=== PATIENT | female | born 1960 | race Caucasian/White ===

== ENCOUNTER 2017-10-02 10:54 | Emergency (ER) | payer BC ==
--- NOTE | 2017-10-02 14:00 | UC ---
Abdominal Pain Female HPI - HPI Summary HPI Summary: 57 y/o female presents to the urgent care c/o of RUQ abdominal pain since this morning at 0530am. Pain is 8/10 intermittent localized, and sharp at times. PT has Hx of kidney stones, but Pt states her symptoms usually start in the back and she denies urinary symptoms. Pt has not taking anything to alleviate pain Hx of appendectomy at age 13. - History of Current Complaint Chief Complaint: UCAbdominalPain Stated Complaint: PAIN UNDER RIB Time Seen by Provider: 10/02/17 13:39 Hx Obtained From: Patient ?: No - Menopausal. Hx of hysterectomy Onset/Duration: Sudden Onset, Lasting Hours - 8hrs, Still Present Timing: Intermittent Episodes Lasting: - seconds Severity Initially: Mild Severity Currently: Moderate Pain Intensity: 8 Pain Scale Used: 0-10 Numeric Location: Discrete At: RUQ Radiates: No Character: Sharp Aggravating Factor(s): Movement Alleviating Factor(s): Position Associated Signs and Symptoms: Positive: Negative. Negative: Diaphoresis, Fever , Cough, Chest Pain, Back Pain, Constipation, Blood in Stool, Urinary Symptoms, Decreased Appetite, Vaginal Bleeding, Vaginal Discharge, Nausea, Vomiting, Diarrhea - Risk Factors Ectopic Risk Factor: Negative, Maternal Age ^ 30 Ovarian Torsion Risk Factor: Hysterectomy Allergies/Adverse Reactions: Allergies Allergy/AdvReac Type Severity Reaction Status Date / Time No Known Allergies Allergy Verified 10/02/17 11:08 PMH/Surg Hx/FS Hx/Imm Hx Previously Healthy: Yes - Pt denies PMHX - Surgical History Surgical History: Yes Surgery Procedure, Year, and Place: hysterectomy- app - Family History Known Family History: Positive: None - Pt dneies FMHX - Social History Occupation: Employed Full-time Lives: With Family Alcohol Use: None Substance Use Type: None Smoking Status (MU): Never Smoked Tobacco Review of Systems Constitutional: Negative Skin: Negative Eyes: Negative ENT: Negative Respiratory: Negative Cardiovascular: Negative Gastrointestinal: Abdominal Pain - RUQ abdominal pain Genitourinary: Negative Motor: Negative Neurovascular: Negative Musculoskeletal: Negative Neurological: Negative Psychological: Negative Is Patient Immunocompromised?: No All Other Systems Reviewed And Are Negative: Yes Physical Exam Vital Signs: Initial Vital Signs Temp 98 F 10/02/17 11:05 Pulse 94 10/02/17 11:05 Resp 16 10/02/17 11:05 BP 148/90 10/02/17 11:05 Pulse Ox 100 10/02/17 11:05 Abd Pain Female Course/Dx - Differential Dx/Diagnosis Differential Diagnosis: Bowel Obstruction, Constipation, Gall Bladder Disease, Renal Colic, Urinary Tract Infection Provider Diagnoses: 1- RT kidney stones. 2-Hepatic cyst. 3-Constipation. 4- Elevated BP w/o Hx of HTN Discharge - Discharge Plan Condition: Stable Disposition: HOME Prescriptions: Ibuprofen TAB* [Motrin TAB* 800 MG] 800 mg PO Q6H PRN #30 tab PRN Reason: Pain Polyethylene Glycol 3350* [Miralax*] 17 gm PO DAILY #1 bottle Patient Education Materials: Constipation (ED), Kidney Stones (ED), Low-Sodium Diet (ED) Referrals: Vahid Meléndez MD [Primary Care Provider] - 2 Days Rigoberto Ward MD [Medical Doctor] - 2 Days Additional Instructions: 1-Please take ibuprofen PO q6-8hrs prn as instructed after meals to alleviate pain. Increase fluid intake, 2- Please F/u w/ Urologist DR Rico in 2-3 days for further managemet 3-Take Miralax as directed PO to improve BM. Star dietary management of constipation: increase fruits, vegetables, fluid and fiber. 1-2 tablespoons qd- tid of equal parts applesauce, prune juice and oat bran. 4-If symptoms worsen please please go immediately to the ER for further management. 5-Your BP is elevated today. please decrease salt in your diet, monitor BP and if it continues to be elevated please f/u with your PCP for further management 6-Please f/u w/ your PCP for further management on the hepatic cyst. - Billing Disposition and Condition Condition: STABLE Disposition: Home
[2017-10-02 14:02] VITALS: BP 154/95
--- NOTE | 2017-10-02 14:33 | RAD ---
Indication: RIGHT upper quadrant pain. Positive Banerjee's sign. Comparison: September 30, [address] Technique: RIGHT upper quadrant ultrasound. Report: Appropriate direction flow documented in the portal and hepatic veins. 12.8 cm liver is increased in echogenicity. 1.4 cm sharply circumscribed simple cyst at the RIGHT hepatic lobe. Negative for intrahepatic biliary dilatation. 1.7 mm common bile duct. Adequately distended gallbladder with normal 1.8 mm wall is without pathologic finding. Negative for sonographic Banerjee's sign. Unremarkable well visualized pancreas. Negative for ascites. 8.5 cm RIGHT kidney is unremarkable. IMPRESSION: 1. Hepatosteatosis. 2. No evidence for gallbladder pathology.
[2017-10-02] MEDS ORDERED: Acetaminophen TAB* 325 MG PO ONE (14:45)
--- NOTE | 2017-10-02 15:25 | RAD ---
INDICATION: Right upper quadrant pain COMPARISON: Right upper quadrant sonogram October 02, 2017; CT abdomen pelvis September 30, 2008 TECHNIQUE: Noncontrast axial source images were obtained from the hemidiaphragms to the symphysis pubis. This examination was ordered using a renal stone protocol which is performed without oral or intravenous contrast and therefore has inherent limitations when used to evaluate other intra-abdominal or intrapelvic pathology. Consider conventional contrast enhanced imaging if clinically indicated. Lung bases: The lung bases are clear. Liver: The liver is normal in size. There is no ductal dilatation. There is a cyst in anterior right hepatic lobe as also described on the recent ultrasound. There is suspected mild hepatic steatosis Gallbladder: There are no calcified gallstones. There is no evidence of wall thickening or pericholecystic fluid.. Spleen: The spleen is normal in size. The noncontrast CT appearance is normal. Pancreas: Noncontrast imaging shows no pancreatic mass or ductal dilitation. Adrenal glands: No masses are identified. Kidneys/Bladder: There are multiple, tiny Abby 1 to 2 mm) calculi in the mid and inferior pole the right kidney. One of these calculi was present previously. Noncontrast imaging shows no evidence of a renal mass. The bladder is unremarkable.. Adenopathy: There is no evidence of intraperitoneal or retroperitoneal adenopathy. Evaluation is limited without oral contrast. Fluid collections: There are no free or localized fluid collections. Vessels: The aorta and iliac vessels are normal in caliber. There are no significant atherosclerotic changes. The IVC appears normal Pelvic organs: The uterus and adnexa appear normal GI tract: Evaluation of the bowel is limited without oral contrast. The stomach, small bowel, and lower GI tract appear grossly normal. There is large amount retained stool, however. There are no obstructive findings. The appendix is visualized and appears normal. Soft tissues: No soft tissue abnormalities of the extraperitoneal abdomen or pelvis are identified. Osseous structures: There are no acute osseous findings. IMPRESSION: 1. Nonobstructive right renal calculi. 2. Incidental right hepatic lobe cyst. 3. Moderate retained stool.
[2017-10-02] MEDS ORDERED: Ketorolac INJ* 30 MG/ML 1 ML VIAL IM ONE (15:40)
== END 2017-10-02 15:55 | disposition home or self-care (01) ==
LOC: UCEAST 10:54
DX: N20.0 Calculus of kidney (principal); Z87.442 Personal history of urinary calculi; K76.89 Other specified diseases of liver; K59.00 Constipation, unspecified; R03.0 Elevated blood-pressure reading, without diagnosis of hypertension
CPT/HCPCS: 74176; 76705; 81003; 96372; 99212; A9270-GY; G0463; J1885

== ENCOUNTER 2019-01-14 18:21 | Emergency (ER) | payer BC ==
--- NOTE | 2019-01-14 18:43 | UC ---
Laceration HPI - HPI Summary HPI Summary: Patient presents to urgent care for evaluation treatment of the laceration to her right thumb. Patient's right-hand dominant. Patient was peeling potatoes when she sliced her thumb. Patient washed her wound but continued to bleed. Patient is an ulcer nail. Patient came here for further evaluation and treatment. Patient is not immunocompromised. Patient is not aware her last tetanus shot was. Patient's medications reviewed this visit. - History Of Current Complaint Stated Complaint: FINGER LACERATION Time Seen by Provider: 01/14/19 18:34 Hx Obtained From: Patient Laceration Location: Finger - Allergies/Home Medications Allergies/Adverse Reactions: Allergies Allergy/AdvReac Type Severity Reaction Status Date / Time No Known Allergies Allergy Verified 01/14/19 18:45 Home Medications: Home Medications NK [No Home Medications Reported] 01/14/19 [History Confirmed 01/14/19] PMH/Surg Hx/FS Hx/Imm Hx Previously Healthy: Yes - Surgical History Surgical History: Yes Surgery Procedure, Year, and Place: hysterectomy-1997,ta appy - Family History Known Family History: Positive: None - Pt dneies FMHX, Non-Contributory - Social History Occupation: Employed Full-time Lives: With Family Alcohol Use: None Substance Use Type: None Smoking Status (MU): Never Smoked Tobacco Review of Systems All Other Systems Reviewed And Are Negative: Yes Constitutional: Positive: Negative Skin: Positive: Other - Laceration right thumb. Physical Exam - Summary Physical Exam Summary: Vital Signs Reviewed: Yes A+Ox3, no distress Eyes: Conjunctiva Clear ENT: Hearing grossly normal neck: supple Respiratory: Positive: No respiratory distress, No accessory muscle use Cardiovascular: skin color reflect adequate perfusion CBT < 2 sec distal pad + flex/ext DIP, PIP against resistance Musculoskeletal Exam: + flex/ext DIP, PIP against resistance Neurological: Positive: Alert, ambulatory without difficulty + gross sensation with q tip about tip Psychological: Positive: Normal Response To examiner Skin: Positive: no rash, no ecchymosis Triage Information Reviewed: Yes Procedures - Procedure Summary Procedure Summary: Digital block: Time out performed with RN at bedside Under sterile conditions, cleaned webbing and ring around right thumb with alcohol using 25 gauge 1.5inch needle - infiltrated ring at base of thumb and web spacing with 4ml of 2% lidocaine without epi Pt tolerated well Will check for anesthesia and reassess Laceration Repair - Laceration Repair 1 Procedure Summary: verbal permission to treat time out completed with RN at bedside pt prepped in usual, sterile fashion copious irrigation with 250ml sterile saline under pressure Pt skin flap dusky - d/w pt and spouse at length - concern for poor blood flow - will suture in place - aware may not survive and will heal by secondary intention pt tolerated well pt became nauseous and lightheaded during end of procedure - RN Called to room , placed supine, elevated legs, cool cloth - pt with rapid recovery Pt monitored x 15 radha + po + ambulated reviewed with pt wound care s/s infection return precautions Description: Linear Laceration Size After Repair: Length (cm) - 1.5 Type Injection: Local Anesthesia Used: 2.0% Lido Cleansing Completed Via Routine Prep: Yes Irrigation With Pressure Irrigation Device: Yes Closure Material: Sutures Closure Method: Single Layer Suture Of: Skin Suture Type: Prolene - 4-0, 4 sutures Laceration Course/Dx - Course/Dx Course Of Treatment: Patient presents to urgent care for evaluation of a laceration to her right thumb when she was peeling potatoes. Patient states she does not know last tetanus was. Patient states she is on any anticoagulation and is not inial compromise. Patient is right-hand dominant. On exam vital signs are stable. Patient with 1 cm laceration to the right thumb. Patient right-hand dominant. Discussed with patient plan for wound. Agreement. Patient received a digital block and then 4 sutures. The flap as discussed was dusky. Concerned that it may not survive. Patient will follow-up with orthopedics. With it but does not will heal by secondary intention. Motrin Tylenol for pain and elevated. Work note. Tetanus was given here his primary care office confirm the none in their records. Pt comfortable and in agreement with plan, BP mildly increased - recommend f.u with pcp - likely related to todays visit - Diagnosis Provider Diagnosis: Thumb laceration Discharge ED - Sign-Out/Discharge Documenting (check all that apply): Patient Departure All imaging exams completed and their final reports reviewed: No Studies - Discharge Plan Condition: Stable Disposition: HOME Patient Education Materials: Diphtheria/Acellular Pertussis/Tetanus Vaccine ( By injection), Care For Your Stitches (ED), Laceration (ED) Forms: *Work Release Referrals: Tatiana Almaraz MD [Medical Doctor] - Additional Instructions: - Keep wound bandaged for 24 hours - after tomorrow, okay to uncover - okay to get wet - pat dry, cover with a thick layer of antibiotic ointment and bandage - Okay to alternate ibuprofen (Advil, Motrin) and Tylenol (acetaminophen) every 3 hours for pain or fever. Take with food. Do NOT take for more than 4-5 days. - you received a tetanus vaccination today - your arm will likely be sore tomorrow - this is normal - The numbing medication wears off in about 90 minutes - stitches should come out in 8-10 days - contact the hand specialist office tomorrow to schedule a recheck appointment - request this week. As discussed, the flap may not survive related to blood flow - your wound will heal from the inside if this happens Contact your doctor, the hand surgeon, or return with questions or concerns - Billing Disposition and Condition Condition: STABLE Disposition: Home
[2019-01-14 18:45] VITALS: BP 142/91
[2019-01-14] MEDS ORDERED: Lidocaine 2% PF * 5 ML VIAL INJ ONE (18:55)
[2019-01-14] MEDS ORDERED: Acetaminophen TAB* 325 MG PO ONE (18:58)
[2019-01-14] MEDS ORDERED: Tetan/Diph/Pertus SYR(Tdap)* 0.5 ML SYR(BOOSTRIX) use SYR IM ONE (19:23)
== END 2019-01-14 20:20 | disposition home or self-care (01) ==
LOC: UCEAST 18:21
DX: S61.011A Laceration without foreign body of right thumb without damage to nail, initial encounter (principal); W27.8XXA Contact with other nonpowered hand tool, initial encounter; Y93.G1 Activity, food preparation and clean up; Y92.010 Kitchen of single-family (private) house as the place of occurrence of the external cause; Y99.8 Other external cause status
CPT/HCPCS: 12002; 90471; 90715; 99212; A9270-GY; G0463